=== PATIENT | male | born 1955 | race Caucasian/White ===

== ENCOUNTER 2016-12-11 07:54 | Emergency (ER) | payer SELFPAY ==
[~2016-12-11] VITALS: Ht 180.3 cm; Wt 126.5 kg
[~2016-12-11 07:54] MED LIST: EFFIENT10 MG PO; GOOD NEIGHBOR325 MG PO; LIPITOR 80MG80 MG PO; METOPROLOL SUC100 MG PO; NORCO 325 MG-51 TAB PO; PEN-VEE K250 MG PO; PLAVIX 75MG TAB75 MG PO; SIMVASTATIN40 MG PO
[2016-12-11 08:49] LABS: HEMATOCRIT 36.1 % (42.0-52.0); HEMOGLOBIN 11.5 g/dL (13.5-18.0); MEAN CELL VOLUME 94 fl (78-100); MEAN CORPUSCULAR HEMOGLOBIN 30 pg (27-31); MEAN CORPUSCULAR HGB CONC 32 g/dL (33-37); MEAN PLATELET VOLUME 10.9 fl (7.4-10.4); PLATELET COUNT 191 K/mm3 (130-400); RED BLOOD COUNT 3.84 M/mm3 (4.20-5.60); RED CELL DISTRIBUTION WIDTH 14.8 % (11.5-14.5); WHITE BLOOD COUNT 12.4 K/mm3 (4.8-10.8)
[2016-12-11 08:58] LABS: BUN/CREATININE RATIO 13.4 (6.0-26.0); CALCIUM 9.1 mg/dL (8.4-10.2); POTASSIUM 3.9 mmol/L (3.6-5.0); TOTAL BILIRUBIN 1.3 mg/dL (0.2-1.3); TOTAL PROTEIN 7.5 g/dL (6.3-8.2)
[2016-12-11 09:06] LABS: BAND 10 % (0-10); CKMB ISOENZYME 3.2 ng/mL (0.6-3.5); LYMPHOCYTE 6 % (20-51); MONOCYTE 1 % (3-10); NEUTROPHILS 83 % (42-75)
[2016-12-11 09:07] LABS: TROPONIN-I < 0.03 ng/mL (0.00-0.06)
[2016-12-11 09:21] LABS: D-DIMER 0.22 mg/L FEU (0.15-0.50)
[2016-12-11] MEDS ORDERED: CEPHALEXIN500 M1 PO (11:06)
[2016-12-11] MEDS ORDERED: BACTRIM DS TAB1 EACH PO (11:06)
[2016-12-11 11:16] VITALS: BP 138/79
[2016-12-11 11:33] LABS: URINE APPEARANCE CLEAR; URINE BILIRUBIN NEGATIVE (NEGATIVE); URINE BLOOD NEGATIVE (NEGATIVE); URINE COLOR YELLOW; URINE GLUCOSE NEGATIVE (NEGATIVE); URINE KETONE NEGATIVE (NEGATIVE); URINE LEUKOCYTE ESTERASE NEGATIVE (NEGATIVE); URINE MUCUS PRESENT (NOT PRESENT); URINE NITRATE NEGATIVE (NEGATIVE); URINE PROTEIN(semi-quant) 1+ mg/dL (NEGATIVE); URINE UROBILINOGEN 1 mg/dL (NORMAL)
== END 2016-12-11 11:20 | disposition home or self-care (01) ==
LOC: ED 07:54
PROVIDERS: Physician Assistant
DX: L03.116 Cellulitis of left lower limb (principal); I50.20 Unspecified systolic (congestive) heart failure; R51 Headache; I25.10 Atherosclerotic heart disease of native coronary artery without angina pectoris; Z86.73 Personal history of transient ischemic attack (TIA), and cerebral infarction without residual deficits; I42.9 Cardiomyopathy, unspecified; E78.5 Hyperlipidemia, unspecified; Z95.5 Presence of coronary angioplasty implant and graft; E89.0 Postprocedural hypothyroidism

== ENCOUNTER 2018-02-05 06:12 | Emergency (ER) | payer SELFPAY ==
[~2018-02-05 06:12] MED LIST changes: +BACTRIM DS TAB1 EACH PO; +CEPHALEXIN500 M1 PO
[2018-02-05 06:31] LABS: EOS # 0.2 (0.04-0.40); EOS % 1.3 % (0.0-4.0); HEMATOCRIT 38.3 % (42.0-52.0); HEMOGLOBIN 12.2 g/dL (13.5-18.0); LYMPH# 2.2 (1.50-4.00); MEAN CELL VOLUME 94 fl (78-100); MEAN CORPUSCULAR HEMOGLOBIN 30 pg (27-31); MEAN CORPUSCULAR HGB CONC 32 g/dL (33-37); MEAN PLATELET VOLUME 10.5 fl (7.4-10.4); MONO # 0.9 (0.20-0.80); NEU # 8.7 (1.40-6.50); PLATELET COUNT 321 K/mm3 (130-400); RED BLOOD COUNT 4.08 M/mm3 (4.20-5.60); RED CELL DISTRIBUTION WIDTH 14.7 % (11.5-14.5)
[2018-02-05 06:44] LABS: ALBUMIN 4.3 g/dL (3.5-5.0); CALCIUM 8.7 mg/dL (8.4-10.2); POTASSIUM 3.6 mmol/L (3.6-5.0); TOTAL BILIRUBIN 0.7 mg/dL (0.2-1.3); TOTAL PROTEIN 7.7 g/dL (6.3-8.2)
[2018-02-05] MEDS ORDERED: SYNTHROID25 MCG PO (06:48)
[2018-02-05] MEDS ORDERED: ASPIRIN 81M81 MG/TA2 PO (06:49)
[2018-02-05] MEDS ORDERED: HCTZ 25MG25 MG PO (06:49)
[2018-02-05 07:21] LABS: D-DIMER 4.21 mg/L FEU (0.15-0.50)
[2018-02-05 07:57] LABS: URINE APPEARANCE CLEAR; URINE BILIRUBIN NEGATIVE (NEGATIVE); URINE BLOOD 50 ery/uL (NEGATIVE); URINE COLOR YELLOW; URINE GLUCOSE NEGATIVE (NEGATIVE); URINE KETONE NEGATIVE (NEGATIVE); URINE LEUKOCYTE ESTERASE NEGATIVE (NEGATIVE); URINE MUCUS PRESENT (NOT PRESENT); URINE NITRATE NEGATIVE (NEGATIVE); URINE PROTEIN(semi-quant) 1+ mg/dL (NEGATIVE); URINE UROBILINOGEN NORMAL (NORMAL)
[2018-02-05 09:07] LABS: PARTIAL THROMBOPLASTIN TIME 25.3 SECONDS (21.0-32.0); PROTHROMBIN TIME 10.3 SECONDS (9.0-12.0)
[2018-02-05 09:38] VITALS: BP 115/71
== END 2018-02-05 10:07 | disposition short-term general hospital (02) ==
LOC: ED 06:12
PROVIDERS: Nurse Practitioner Family; Physician Assistant
DX: I26.99 Other pulmonary embolism without acute cor pulmonale (principal); I11.0 Hypertensive heart disease with heart failure; I50.9 Heart failure, unspecified; I25.2 Old myocardial infarction; Z95.5 Presence of coronary angioplasty implant and graft; Z86.73 Personal history of transient ischemic attack (TIA), and cerebral infarction without residual deficits; E78.5 Hyperlipidemia, unspecified; I42.9 Cardiomyopathy, unspecified; E07.9 Disorder of thyroid, unspecified; R46.0 Very low level of personal hygiene; B35.3 Tinea pedis; R09.02 Hypoxemia
CPT/HCPCS: J1940; Q9967

== ENCOUNTER 2020-10-09 16:12 | Emergency (ER) | payer BC ==
[~2020-10-09] VITALS: Ht 180.3 cm; Wt 118.2 kg
[~2020-10-09 16:12] MED LIST changes: +ASPIRIN 81M81 MG/TA2 PO; +HCTZ 25MG25 MG PO; +SYNTHROID25 MCG PO
[2020-10-09] MEDS ORDERED: VASOTEC2.5 M1 PO (16:44)
[2020-10-09] MEDS ORDERED: ELIQUIS5 MG PO (16:44)
[2020-10-09] MEDS ORDERED: LIPITOR 80MG80 MG PO (16:44)
[2020-10-09] MEDS ORDERED: GLUCOPHAGE PO (16:45)
[2020-10-09] MEDS ORDERED: CARVEDILOL6.25 MG PO (16:45)
[2020-10-09] MEDS ORDERED: LASIX40 M1 PO (16:45)
[2020-10-09] MEDS ORDERED: CLOPIDOGREL75 M2 PO (16:46)
[2020-10-09] MEDS ORDERED: LEVOTHYROXIN0.137 MG PO (16:46)
[2020-10-09 17:06] LABS: BASO # 0.04 (0.02-0.10); EOS # 0.23 (0.04-0.40); EOS % 2.4 % (0.0-4.0); HEMATOCRIT 40.6 % (42.0-52.0); HEMOGLOBIN 13.1 g/dL (13.5-18.0); LYMPH# 2.25 (1.50-4.00); MEAN CELL VOLUME 89 fl (78-100); MEAN CORPUSCULAR HEMOGLOBIN 29 pg (27-31); MEAN CORPUSCULAR HGB CONC 32 g/dL (33-37); MEAN PLATELET VOLUME 10.7 fl (7.4-10.4); MONO # 0.81 (0.20-0.80); NEU # 6.23 (1.40-6.50); PLATELET COUNT 256 K/mm3 (130-400); RED BLOOD COUNT 4.57 M/mm3 (4.20-5.60); RED CELL DISTRIBUTION WIDTH 14.1 % (11.5-14.5); WHITE BLOOD COUNT 9.6 K/mm3 (4.8-10.8)
[2020-10-09 17:25] LABS: ALBUMIN 3.7 g/dL (3.4-4.8); POTASSIUM 3.7 mmol/L (3.5-5.1)
[2020-10-09 17:26] LABS: CALCIUM 9.1 mg/dL (8.3-10.5)
[2020-10-09 17:28] LABS: TOTAL PROTEIN 7.1 g/dL (6.2-8.1)
[2020-10-09 17:29] LABS: TOTAL BILIRUBIN 0.8 mg/dL (0.2-1.2)
[2020-10-09 17:36] LABS: PARTIAL THROMBOPLASTIN TIME 25.1 SECONDS (21.0-32.0)
[2020-10-09 17:42] LABS: D-DIMER 0.12 mg/L FEU (0.15-0.50)
[2020-10-09 18:14] LABS: TROPONIN-I 0.03 ng/mL (<0.030)
[2020-10-09 22:22] VITALS: BP 129/89
[2020-11-30] MEDS ORDERED: ENTRESTO 24 MG1 EACH PO (08:09)
== END 2020-10-09 22:22 | disposition left against medical advice (07) ==
LOC: ED 16:12
PROVIDERS: Nurse Practitioner Family
DX: I25.10 Atherosclerotic heart disease of native coronary artery without angina pectoris (principal); I10 Essential (primary) hypertension; R07.9 Chest pain, unspecified; R06.02 Shortness of breath; R74.8 Abnormal levels of other serum enzymes; I25.2 Old myocardial infarction; I11.0 Hypertensive heart disease with heart failure; I50.9 Heart failure, unspecified; E78.5 Hyperlipidemia, unspecified; E07.9 Disorder of thyroid, unspecified; Z86.711 Personal history of pulmonary embolism; Z91.14 Patient's other noncompliance with medication regimen; Z20.822 Contact with and (suspected) exposure to COVID-19; Z79.01 Long term (current) use of anticoagulants; Z79.02 Long term (current) use of antithrombotics/antiplatelets; Z86.73 Personal history of transient ischemic attack (TIA), and cerebral infarction without residual deficits; Z86.16 Personal history of COVID-19; Z79.899 Other long term (current) drug therapy; Z79.890 Hormone replacement therapy
CPT/HCPCS: J7030

== ENCOUNTER → 2020-10-10 | Outpatient (CLI) | payer BC ==
[~2020-10-10] MED LIST changes: +CARVEDILOL6.25 MG PO; +CLOPIDOGREL75 M2 PO; +ELIQUIS5 MG PO; +ENTRESTO 24 MG1 EACH PO; +GLUCOPHAGE PO; +LASIX40 M1 PO; +LEVOTHYROXIN0.137 MG PO; +PERCOCET 325 MG1 TA2 PO; +VASOTEC2.5 M1 PO
== END ==
LOC: AMSURD 06:40
DX: I25.10 Atherosclerotic heart disease of native coronary artery without angina pectoris (principal)

== ENCOUNTER 2020-12-02 20:06 | Outpatient (RCR) | payer BC ==
[2020-11-30 20:00] VITALS: BP 118/89
[2020-12-01 08:20] VITALS: BP 103/68
[2020-12-01 20:11] VITALS: BP 120/69
[~2020-12-02] VITALS: Ht 180.3 cm; Wt 118.2 kg
[2020-12-02 08:05] VITALS: BP 110/69
[~2020-12-02 20:06] MED LIST changes: -PERCOCET 325 MG1 TA2 PO
[2020-12-02 20:15] VITALS: BP 110/70
== END 2020-12-02 21:00 | disposition home or self-care (01) ==
LOC: AMSURD 20:06
DX: Z79.899 Other long term (current) drug therapy (principal)
CPT/HCPCS: J1650

== ENCOUNTER 2020-12-05 00:36 | Emergency (ER) | payer BC ==
[~2020-12-05] VITALS: Ht 180.3 cm; Wt 118.2 kg
[2020-12-05 01:17] LABS: BASO # 0.03 K/mm3 (0.02-0.10); EOS # 0.21 K/mm3 (0.04-0.40); EOS % 2.6 % (0.0-4.0); HEMATOCRIT 41.2 % (42.0-52.0); HEMOGLOBIN 12.9 g/dL (13.5-18.0); LYMPH# 2.08 K/mm3 (1.50-4.00); MEAN CELL VOLUME 92 fl (78-100); MEAN CORPUSCULAR HEMOGLOBIN 29 pg (27-31); MEAN CORPUSCULAR HGB CONC 31 g/dL (33-37); MEAN PLATELET VOLUME 10.4 fl (7.4-10.4); MONO # 0.68 K/mm3 (0.20-0.80); NEU # 5.17 K/mm3 (1.40-6.50); PLATELET COUNT 226 K/mm3 (130-400); RED BLOOD COUNT 4.47 M/mm3 (4.20-5.60); RED CELL DISTRIBUTION WIDTH 14.4 % (11.5-14.5); WHITE BLOOD COUNT 8.2 K/mm3 (4.8-10.8)
[2020-12-05 01:26] LABS: ALBUMIN 3.7 g/dL (3.4-4.8); POTASSIUM 4.2 mmol/L (3.5-5.1)
[2020-12-05 01:29] LABS: TOTAL PROTEIN 7.1 g/dL (6.2-8.1)
[2020-12-05 01:30] LABS: TOTAL BILIRUBIN 0.4 mg/dL (0.2-1.2)
[2020-12-05 02:02] VITALS: BP 116/78
[2020-12-05] MEDS ORDERED: PERCOCET 325 MG1 TA2 PO (02:13)
== END 2020-12-05 02:27 | disposition home or self-care (01) ==
LOC: ED 00:36
PROVIDERS: Nurse Practitioner Family
DX: F41.9 Anxiety disorder, unspecified (principal); I25.10 Atherosclerotic heart disease of native coronary artery without angina pectoris; I25.5 Ischemic cardiomyopathy; I25.2 Old myocardial infarction; I10 Essential (primary) hypertension; E07.9 Disorder of thyroid, unspecified; E78.5 Hyperlipidemia, unspecified; Z95.5 Presence of coronary angioplasty implant and graft; Z95.0 Presence of cardiac pacemaker; Z86.16 Personal history of COVID-19; Z86.711 Personal history of pulmonary embolism; Z79.01 Long term (current) use of anticoagulants; Z79.890 Hormone replacement therapy; Z79.899 Other long term (current) drug therapy

== ENCOUNTER → 2024-03-07 | Day surgery (SDC) | payer MEDICARE ==
[~2024-03-07] MED LIST changes: +PERCOCET 325 MG1 TA2 PO
== END ==
LOC: MSO 09:47
DX: Z12.11 Encounter for screening for malignant neoplasm of colon (principal); D12.3 Benign neoplasm of transverse colon; K57.30 Diverticulosis of large intestine without perforation or abscess without bleeding; Z95.0 Presence of cardiac pacemaker; Z86.73 Personal history of transient ischemic attack (TIA), and cerebral infarction without residual deficits; Z86.711 Personal history of pulmonary embolism
CPT/HCPCS: 00811; J2704; J7120